=== PATIENT | male | born 2000 | race Caucasian/White ===

== ENCOUNTER 2023-11-22 11:40 | Emergency (ER) | payer OTHER ==
--- NOTE | 2023-11-22 12:22 | ED Physician Documentation ---
PD HPI CHEST PAIN - Stated complaint Stated Complaint: CHEST PX - Chief complaint Chief Complaint: Cardiac - History obtained from History obtained from: Patient - History of Present Illness Timing - onset: How many weeks ago (1) Timing - onset during: Light activity. No: Eating Timing - duration: Weeks (1) Timing - details: Gradual onset, Still present, Waxing and waning (onset without obvious injury left scapular back pain traveling through to left pectoral area. Briefly improved with Ibuprofen. More noted at night when lying on side. Increased a lot yesterday after doing workout at gym, even though avoided exercises that work the area. Worse pain today.) Quality: Aching, Sharp, Pain Location: Left shoulder/arm Radiation: Left upper extremity (scapular area of shoulder) Review of Systems Cardiac: denies: Palpitations Respiratory: denies: Dyspnea, Cough GI: denies: Abdominal Pain, Diarrhea PD PAST MEDICAL HISTORY - Past Medical History Past Medical History: No Cardiovascular: None Respiratory: None Endocrine/Autoimmune: None - Past Surgical History Past Surgical History: No - Present Medications Home Medications: Ambulatory Orders Medication Instructions Recorded Confirmed HYDROcod/ACETAM 5/325 [Sanders 5/325] 1 ea PO Q6H PRN #18 tablet 11/22/23 Ibuprofen [Motrin] 600 mg PO TID PRN #25 tab 11/22/23 tiZANidine [Zanaflex] 4 mg PO Q8H PRN #25 tablet 11/22/23 - Allergies Allergies/Adverse Reactions: Allergies Allergy/AdvReac Type Severity Reaction Status Date / Time Penicillins Allergy Rash Verified 11/22/23 11:59 - Social History Does the pt smoke?: No Smoking Status: Never smoker PD ED PE NORMAL - Vitals Vital signs reviewed: Yes - General General: Alert and oriented X 3, No acute distress, Well developed/nourished - Cardiac Cardiac: RRR, No murmur - Respiratory Respiratory: No respiratory distress, Clear bilaterally - Abdomen Abdomen: Soft, Non tender - Back Back: Other (left scapular area without tenderness to palpation, but hurts with shoulder movement and deep breathing. ) - Derm Derm: Normal color, Warm and dry, No rash Results - Vitals Vitals: Vital Signs - 24 hr 11/22/23 11/22/23 11:56 14:30 Temperature 36.2 C L Heart Rate 77 78 Respiratory 18 18 Rate Blood Pressure 141/82 H 146/71 H O2 Saturation 99 98 Oxygen O2 Source Room air - EKG (time done) 11:58 EKG releavant findings:: EKG personally interpreted by author of this note. Relevant findings are: Rate: Rate (enter#) (77) Rhythm: NSR [place]: Normal Intervals: Normal [place] QRS: Normal Ischemia: Normal ST segments. No: ST elevation c/w ischemia, ST depression Compare to prior EKG: Old EKG unavailable - Rads (name of study) chest xray 2 view Relevant Findings:: Prelim report reviewed, EMP independent interpretation of test (lungs appear normal. lateral with normal appearance thoracic spine. ) PD Medical Decision Making - ED course Complexity details: reviewed results (ECG and CXR are normal. Character of pain sound unlike heart pain. I did not feel trop/bnp were needed. Seems muscular. ), considered differential (undetermined cause, no apparent injury. Does do upper body and back stregnthening workouts. No URI nor cough. Can get CXR to ensure no effusion, PTX, mass, infiltrates. ), d/w patient Departure - Departure Disposition: 01 Home, Self Care Clinical Impression: Left-sided thoracic back pain Condition: Stable Record reviewed to determine appropriate education?: Yes Instructions: ED Strain Chest Wall Follow-Up: [facility] [Provider Group] Prescriptions: Ibuprofen [Motrin] 600 mg PO TID PRN #25 tab PRN Reason: Pain HYDROcod/ACETAM 5/325 [Sanders 5/325] 1 ea PO Q6H PRN #18 tablet PRN Reason: Pain tiZANidine [Zanaflex] 4 mg PO Q8H PRN #25 tablet PRN Reason: Spasms Comments: Your chest x-ray appears normal. No signs of obvious lung fluid, tumors, pneumonia, pneumothorax. The lateral aspect of it shows normal vertebral structure in the spine. I would presume muscular type pain at this point. Combination of less activity for a couple of days along with heat and stretching and such for the area. I would avoid it excess muscular use of the area but stretching and light use are okay. Anti-inflammatories such as ibuprofen 3 times daily. Tizanidine muscle relaxant for spasms and stiffness can be helpful as well. To that add Tylenol 500 to 650 mg 4 times daily for the pain. I also prescribed hydrocodone/acetaminophen if needed for worse pain. This would be intended short-term for the worst pain. Follow-up with your primary if not improving well over the next several days and resolved by 4 to 5 days. Avoid heavy workout of the upper body especially the back for 7 to 10 days. I sent your prescriptions to your preferred pharmacy. I am prescribing a short course of narcotic pain medication for you. These are potentially dangerous and addictive medications that should be used carefully. These medications may constipate you. Take an [id number] stool softener such as docusate twice daily with plenty of water while taking these medications. If you go 24 hours without a bowel movement, take [id number] MiraLAX, per package instructions. Do not drink or drive while taking these medications. If you received narcotic or sedating medications while in the emergency department do not drive for 24 hours. Store this medication in a safe, secure place and out of reach of children. It is a violation of federal law to give or sell this medication to another person or to use in a manner other than prescribed. The ED will not refill narcotic prescriptions, including prescriptions lost or stolen. You can dispose of unwanted medications at the [facility]'s office or at several pharmacies such as [facility]. Forms: PCP List, Activity restrictions Discharge Date/Time: 11/22/23 14:31
[2023-11-22] MEDS: KETOROLAC 30 MG/ML VIAL IM STA (13:04)
[2023-11-22] MEDS: HYDROmorphone 1 MG/ML CARPUJECT IM STA (13:04)
--- NOTE | 2023-11-22 14:17 | XRAY Report ---
PROCEDURE: Chest 2V INDICATIONS: left chest pain TECHNIQUE: 2 views of the chest were acquired. COMPARISON: None. FINDINGS: Surgical changes and devices: None. Lungs and pleura: No dense consolidation or pleural effusion. Mediastinum: Normal heart size Bones and chest wall: No suspicious bony lesions. Overlying soft tissues appear unremarkable. IMPRESSION: No acute radiographic abnormality. Reviewed by: Xavier Cartwright MD on 11/22/2023 2:15 PM PST Approved by: Xavier Cartwright MD on 11/22/2023 2:15 PM PST Station ID: [id number]
[2023-11-22 14:38] VITALS: BP 146/71; O2SAT 98
== END 2023-11-22 14:31 | disposition home or self-care (01) ==
LOC: ED 11:40
DX: M54.6 Pain in thoracic spine (principal)
CPT/HCPCS: 71046; 93005; 96372; 99284; J1170